=== PATIENT | female | born 1955 | race Two or more races ===

== ENCOUNTER 2020-01-18 11:07 | Inpatient (IN) | payer MEDICARE, OTHER ==
[~2020-01-18] VITALS: Ht 167.6 cm; Wt 91.2 kg
--- NOTE | 2020-01-18 11:14 | NUR ---
[id number] FRM HOME C/O CHEST PAIN THAT STARTED TODAY. ASPIRIN 325MG AND ONE ROUND OF NITRO GIVEN CEPHALOMETRIC TRACER, PER REPORT, NO CHANGES IN PAIN AFTER NITRO. TO ER BED 9, HOOKED TO MONITOR, PATIENT NOTED HYPERVENTILATING. CHANGED TO HOSP GOWN, WARM BLANKET PROVIDED, AWAITING MD AYERS
--- NOTE | 2020-01-18 11:20 | NUR ---
DR FIGUEROA AT BEDSIDE
[2020-01-18 11:49] LABS: BASOPHILS % (AUTO) 0.4 % (0.0-2.0); HEMATOCRIT 30 % (33-45); HEMOGLOBIN 9.7 g/dL (11.5-14.8); MEAN CORPUSCULAR HGB CONC 32 g/dl (31.0-36.0); MEAN CORPUSCULAR VOLUME 85 fL (82-100); MONOCYTES # (AUTO) 0.8 /CMM (0.1-1.30); NEUTROPHILS # (AUTO) 6.4 /CMM (1.8-8.9); NEUTROPHILS % (AUTO) 77.6 % (43.0-81.0); PLATELET COUNT (AUTO) 259 /CMM (150-450); RED BLOOD CELL COUNT(AUTO) 3.55 MIL/uL (4.0-5.2); WHITE BLOOD COUNT (AUTO) 8.2 K/uL (4.3-11.0)
[2020-01-18 11:54] LABS: CALCIUM, SERUM 8.3 mg/dL (8.5-10.1); CREATININE 2.2 mg/dL (0.6-1.3); POTASSIUM 4.3 mmol/L (3.5-5.1)
[2020-01-18] MEDS ORDERED: INSU100I19 SQ (12:18)
[2020-01-18] MEDS ORDERED: SITA1TAB6 PO (12:18)
[2020-01-18] MEDS ORDERED: IV LR 1000 ML 1,000 ML IV ONE (13:30)
[2020-01-18] MEDS ORDERED: ONDANSETRON HCL/PF 4 MG/2 ML VIAL IVP PRN (13:30)
[2020-01-18] MEDS ORDERED: ACETAMINOPHEN 325 MG TABLET PO PRN (13:30)
[2020-01-18] MEDS ORDERED: NITROGLYCERIN 0.4 MG/TAB BOTTLE SL PRN (13:30)
[2020-01-18] MEDS ORDERED: MORPHINE SULFATE INJ 2 MG/ML DISP.SYRIN IV PRN (13:30)
[2020-01-18 14:38] LABS: ABG BASE EXCESS -8.6 mmol/L; ABG OXYGEN SATURATION 25.7 % (92.0-98.5); ABG PCO2 32.8 mmHg (35.0-45.0); ABG PH 7.322 (7.350-7.450); ABG PO2 22.9 mmHg (75.0-100.0); COHb 0.6 % (0.5-1.5); MetHb 1.4 % (0.0-1.5); O2Hb 25.2 % (94.0-97.0); SITE, ABG Other; VENT MODE, BG RA
--- NOTE | 2020-01-18 14:59 | NUR ---
REPORT GIVEN TO DIANE FIGUEROA OG TELE UNIT
[2020-01-18] MEDS ORDERED: ENOXAPARIN SODIUM 100 MG/ML DISP.SYRIN SQ SCH (15:30)
--- NOTE | 2020-01-18 15:30 | NUR ---
MS RN OPENING NOTES RECEIVED PATIENT FROM E.R. IN BED, AWAKE, CONSCIOUS, COOPERATIVE, WITH HEAVY BREATHING AT ROOM AIR, RAC 18G, NO REDNESS OR INFILTRATION NOTED.
[2020-01-18 16:00] VITALS: BP 117/63
--- NOTE | 2020-01-18 16:00 | NUR ---
MS RN NOTES LOVENOX NOT GIVEN. PATIENT NOT IN THE FLOOR.
[2020-01-18] MEDS ORDERED: IV NS 0.9% 1,000 ML IV PRN (16:30)
[2020-01-18] MEDS ORDERED: METFORMIN 500 MG TABLET PO SCH (17:00)
[2020-01-18] MEDS ORDERED: METOPROLOL TARTRATE 25 MG TABLET PO SCH (17:00)
[2020-01-18 17:15] LABS: THYROID STIMULATING HORMONE 1.913 uIU/mL (0.358-3.74)
--- NOTE | 2020-01-18 18:45 | NUR ---
MS RN NOTES TALKED TO DR. MANE FROM RADIOLOGY. HE SAID THAT PATIENT IS POSITIVE WITH PULMONARY EMBOLISM.
--- NOTE | 2020-01-18 19:00 | NUR ---
multicut line operator opening notes Pt is resting in bed comfortably. Pt is alert and orientedX4. Respiration is normal in room air. No SOB. No S/S of distress noted. Tele monitor showed SR Hr at 96 bpm. IV sites at RAC# 18 is clean, intact and patent. Pt is able to ambulate with senior agricultural assistant. Safety precautions is maintained. Bed at low position, brakes locked, side rails upX2 and call light is within reach. Will continue to monitor.
--- NOTE | 2020-01-18 19:09 | NUR ---
MS RN CLOSING NOTES ENDORSED PATIENT TO SALES DEPARTMENT CLERK NURSE, AWAK, COOPERATIVE, NO SIGNS OF RESPIRATORY DISTRESS, RAC 18G, NO REDNESS OR INFILTRATION NOTED, SIDE RAILS UP FOR SAFETY. Addendum: 01/18/20 at 2024 by JIM YBARRA RN 1929 CRITICAL REPORT PULMONARY EMBOLISM PRESENT. SEND A PAGE FOR LAW FIRM CONSULTANT DOCTOR AWAITING FOR CALL BACK. ENDORSED TO NIGHT RN.
[2020-01-18 20:00] VITALS: BP 144/73
[2020-01-18 20:15] VITALS: BP 98/57
--- NOTE | 2020-01-18 20:15 | NUR ---
quill picking machine operator notes Rapid response is called.
--- NOTE | 2020-01-18 20:16 | NUR ---
train braker notes Rapid response is called. Pt looks lethargic, cool, and sweating.
[2020-01-18 20:37] VITALS: BP 144/73
[2020-01-18 20:39] LABS: ABG BASE EXCESS -15.2 mmol/L; ABG OXYGEN SATURATION 99.4 % (92.0-98.5); ABG PCO2 19.7 mmHg (35.0-45.0); ABG PH 7.294 (7.350-7.450); ABG PO2 472.6 mmHg (75.0-100.0); AaDO2 220.7 mmHg; COHb 0.2 % (0.5-1.5); MetHb 0.3 % (0.0-1.5); O2Hb 98.9 % (94.0-97.0); SITE, ABG Right Radial; VENT MODE, BG 100% NRB
--- NOTE | 2020-01-18 20:53 | NUR ---
ships equipment engineer notes Called radiology to get xray result. Radiology will call back to give the result. Will continue to monitor.
[2020-01-18] MEDS ORDERED: INSULIN GLARGINE, 100 UNIT/ML CARTRIDGE SQ SCH (21:00)
--- NOTE | 2020-01-18 21:05 | NUR ---
fiber technologist notes Called Dr. Hale. Awaiting for orders.
--- NOTE | 2020-01-18 21:29 | NUR ---
crime scene investigator notes Called Dr. Hale for second time. Awaiting for orders.
--- NOTE | 2020-01-18 21:31 | NUR ---
artificial leather calender operator notes Received order from Dr. Nguyen to transfer Pt to [facility]. Charge nurse is aware and informed.
[2020-01-18 22:16] LABS: PHOSPHORUS 4.6 mg/dL (2.5-4.9)
--- NOTE | 2020-01-18 22:19 | NUR ---
machine assembler for puller over notes Report given to HENRY Booker for continuity of care
--- NOTE | 2020-01-18 22:20 | NUR ---
[facility] RN NOTES RECEIVED REPORT FROM MALORIE FIGUEROA FROM [facility], TO TRANSFER THE PT TO THE ROOM 104 AND ADMIT TO [facility]. AWAITING TRANSFER
--- NOTE | 2020-01-18 22:30 | NUR ---
aeronautical test engineer notes Spoke and informed Pt's son that MD order for Pt's to be transfer to [facility] room 104.
--- NOTE | 2020-01-18 22:40 | NUR ---
deliverer merchandise notes Transferred Pt to room 104 with oxygen and ACLs protocol.
--- NOTE | 2020-01-18 22:41 | NUR ---
strap setter notes Gave Pt's belongings and Pt's home meds to HENRY Reinoso.
--- NOTE | 2020-01-18 22:45 | NUR ---
[facility] RN NOTES RECEIVED PT VIA HOSPITAL BED. AOX4, KINYARWANDA SPEAKING. NAD. LUNGS CLAB, W/NC ON 2LPM O2 RUNNING. NO SOB. ON TELE MONITOR WITH NSR. ON CC DIET. RAC 18G PERIPHERAL IV, NS AT 80CC/HR, DRESSING INTACT W/PATIENT LINE. CECI WELL. REPORTED TO HAVE UNSTEADY GATE BY MS RN. BED LOCKED AND IN LOWEST POSITION WITH ALARM ON. ALL SAFETY MEASURES IN PLACE. WILL CONT TO MONITOR.
[2020-01-19] VITALS: BP 100/63
--- NOTE | 2020-01-19 01:45 | NUR ---
[facility] RN NOTES PAGED [employer] PROFESSOR DR. ANDREW ABOUT PT C/O CHEST PAIN AND RETCHING/NAUSEA ALONG C/O OF HEADACHE AND CONSTIPATION. AWAITING FOR ORDERS
--- NOTE | 2020-01-19 02:04 | NUR ---
[facility] RN NOTES PT FOUND UNRESPONSIVE DURING PT ROUNDING. CODE BLUE CALLED. CODE TEAM ARRIVED. CPR STARTED
--- NOTE | 2020-01-19 02:20 | NUR ---
[facility] RN NOTES PT'S FAMILY CALLED, HER INFORMED ABOUT CODE BLUE
[2020-01-19] MEDS ORDERED: EPINEPHRINE (1:1000) 1 MG/ML AMPUL ONE ×2 (02:47→02:50)
[2020-01-19] MEDS ORDERED: EPINEPHRINE (1:10,000) SYRINGE 1 MG/10 ML DISP.SYRIN ONE (02:51)
--- NOTE | 2020-01-19 02:51 | NUR ---
[facility] RN NOTES PT PRONOUNCED BY DR. SILVERMAN. PT'S FAMILY CALLED.
[2020-01-19] MEDS ORDERED: EPINEPHRINE (1:1000) 10 MG in IV NS 0.9% 240 ML IV PRN (03:00)
--- NOTE | 2020-01-19 03:10 | NUR ---
RT @0205 code blue was called. upon arrival, compressions were performed. er md intubated pt with ett 7.5 secured at lip at 21 cm. post intubation, compressions were started again. pt was revived and placed on the vent with settings of AC 16 500 100%. pt coded third time and compressions were started again. tod 0251.
--- NOTE | 2020-01-19 03:25 | NUR ---
[facility] RN NOTES [facility] CONTACTED. SPOKE WITH VICENTE, SHE SAID IT IS OK TO RELEASE THE BODY TO THE FAMILY.
--- NOTE | 2020-01-19 03:40 | NUR ---
[facility] RN NOTES SPOKE WITH CAT SITTER'S OFFICE Ruth HERNANDEZ TO RELEASE THE BODY TO THE FAMILY. CAUSE OF TO BE OF NATURAL CAUSES, ACCORDING TO Ruth HERNANDEZ
--- NOTE | 2020-01-19 04:50 | NUR ---
[facility] RN NOTES ACCOMPANIED SECURITY GUARDS TO RELEASE THE PATIENT TO THE FACILITY [facility]
[2020-01-19] MEDS ORDERED: CALCIUM CHLORIDE 1,000 MG/10 ML DISP.SYRIN IV ONE (06:26)
[2020-01-19] MEDS ORDERED: EPINEPHRINE (1:10,000) SYRINGE 1 MG/10 ML DISP.SYRIN IVP ONE (06:26)
[2020-01-19] MEDS ORDERED: SODIUM BICARBONATE SYR 50 MEQ/50 ML DISP.SYRIN IV ONE (06:26)
[2020-01-19] MEDS ORDERED: LINAGLIPTIN 5 MG TABLET PO SCH (09:00)
[2020-01-19] MEDS ORDERED: ASPIRIN 81 MG TAB.CHEW PO SCH (09:00)
== END 2020-01-19 06:27 | disposition expired | DRG 208 ==
LOC: ER 11:09 → TELE 15:17 → TELE-TD 22:28
PROVIDERS: ADMIT Internal Medicine; ATTEND Internal Medicine
PROC: 5A1935Z Respiratory Ventilation, Less than 24 Consecutive Hours (ICD-10-PCS; principal; 2020-01-18)
PROC: 0BH17EZ Insertion of Endotracheal Airway into Trachea, Via Natural or Artificial Opening (ICD-10-PCS; 2020-01-18)
PROC: 06HM33Z Insertion of Infusion Device into Right Femoral Vein, Percutaneous Approach (ICD-10-PCS; 2020-01-18)
PROC: B54BZZA Ultrasonography of Right Lower Extremity Veins, Guidance (ICD-10-PCS; 2020-01-18)
DX: I26.99 Other pulmonary embolism without acute cor pulmonale (principal); I21.A1 Myocardial infarction type 2; N17.0 Acute kidney failure with tubular necrosis; E87.1 Hypo-osmolality and hyponatremia; Z82.49 Family history of ischemic heart disease and other diseases of the circulatory system; I27.20 Pulmonary hypertension, unspecified; Z79.4 Long term (current) use of insulin; E11.22 Type 2 diabetes mellitus with diabetic chronic kidney disease; Z88.0 Allergy status to penicillin; Z79.84 Long term (current) use of oral hypoglycemic drugs; N18.9 Chronic kidney disease, unspecified; I12.9 Hypertensive chronic kidney disease with stage 1 through stage 4 chronic kidney disease, or unspecified chronic kidney disease; E66.9 Obesity, unspecified; D63.8 Anemia in other chronic diseases classified elsewhere; F17.200 Nicotine dependence, unspecified, uncomplicated
CPT/HCPCS: 36415; 36600; 71045-TC; 78580; 80048-TC; 80061-TC; 82728-TC; 82803-TC; 82962-TC; 83540-TC; 83735-TC; 84100-TC; 84439-TC; 84443-TC; 84484-TC; 85025-TC; 87081-TC; 92950-TC; 93307-TC; A9540; C1751; G0378; J0171; J1650; J1815; J2270; J3490; J7120